=== PATIENT | female | born 1945 | race Caucasian/White ===

== ENCOUNTER 2017-09-22 19:53 | Emergency (ER) | payer BC, MEDICARE ==
[2017-09-22 20:09] VITALS: BP 126/74; PULSE 92; RESP 18; TEMP 98.2; O2SAT 96
[2017-09-22] MEDS ORDERED: ZOLO100T PO (20:26)
[2017-09-22] MEDS ORDERED: LIDOCAINE HCL 1% PF 30 ML VIAL INFIL ONE (20:45)
--- NOTE | 2017-09-22 21:18 | PD ---
HPI Chief Complaint: Fall Time Seen by Provider: 20:30 Travel History International Travel<30 days: No Contact w/Intl Traveler<30days: No Traveled to known affect area: No History of Present Illness HPI 72yo female that presents to the ED for a fall this evening. Pt states that she was helping her granddaughter move a bed when she tripped over the bed frame and hit her head on the floor. She was unable to get up on her own, and her granddaughter who is currently was not able to help her until EMS arrived. Pt reports that she has fallen several times in the past, all of which were due to a mechanical cause rather than a medical cause. Pt is not on any blood thinners. She denies any LOC, nausea, vomiting, blurred vision or focal neurologic deficits. Pain per patient is 4 out of 10. Denies any blood thinners. No other medical issues at this time. Pain is mostly to the head. PFSH Past Medical History Cancer: Yes (melenoma, lymp nodes removed ) Tetanus Vaccination: < 5 Years Social History Alcohol Use: No Tobacco Use: No Allergies-Medications (Allergen,Severity, Reaction): Coded Allergies: meperidine (Verified Allergy, Severe, 09/22/17) Reported Meds & Prescriptions Reported Meds & Active Scripts Active Diclofenac Sodium DR (Diclofenac Sodium) 75 Mg Tabdr 75 Mg PO BID PRN Reported Zoloft (Sertraline HCl) 100 Mg Tab 100 Mg PO DAILY Review of Systems Except as stated in HPI: all other systems reviewed are Neg Physical Exam Narrative GENERAL: well developed, well nourished pleasant female in no acute distress. Alert and oriented x3. SKIN: Warm and dry. 3cm oblique laceration noted above the L eyebrow. No involvement of the orbit or eyebrow. Several ecchymotic areas over the bilateral UE. Small, superficial abrasion over the L knee. EYES: Pupils equal and round. No scleral icterus. No injection or drainage. ENT: No nasal bleeding or discharge. Mucous membranes pink and moist. CARDIOVASCULAR: Regular rate and rhythm. No murmurs, rubs or gallops. RESPIRATORY: No accessory muscle use. Clear to auscultation. Breath sounds equal bilaterally. GASTROINTESTINAL: Abdomen soft, non-tender, nondistended. Hepatic and splenic margins not palpable. MUSCULOSKELETAL: Extremities without clubbing, cyanosis, or edema. No obvious deformities. Mild tenderness to the L lateral malleolus. Full range of motion of the upper and lower extremities bilaterally. The lumbar, thoracic, cervical spine tenderness to palpation. NEUROLOGICAL: Awake and alert. No obvious cranial nerve deficits. Motor grossly within normal limits. Five out of 5 muscle strength in the arms and legs. Normal speech. PSYCHIATRIC: Appropriate mood and affect; insight and judgment normal. Data Data Last Documented VS Vital Signs Date Time Temp Pulse Resp B/P (MAP) Pulse Ox O2 Delivery O2 Flow Rate FiO2 09/22/17 20:09 98.2 92 18 126/74 (91) [address] Brain W/O Iv Contrast(Rout) (09/22/17 20:37) Ct Cerv Spine W/O Contrast (09/22/17 20:37) Ice/Cold Pack (09/22/17 20:37) Lidocaine Pf 1% Inj (Xylocaine-Mpf 1% In (09/22/17 20:45) Ankle, Complete ([id number]) (09/22/17 ) Foot, Complete ([id number]) (09/22/17 ) Splint Or Brace Apply/Monitor (09/22/17 21:53) Acetaminophen (Tylenol) (09/22/17 22:00) Ed Discharge Order (09/22/17 22:03) MDM Medical Decision Making Medical Screen Exam Complete: Yes Emergency Medical Condition: Yes Medical Record Reviewed: Yes Interpretation(s) Last Impressions Head CT 09/22/172036 Signed Impressions: CONCLUSION: 1. No acute infarct, acute hemorrhage, midline shift or extra-axial fluid wilbur ections. 2. 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 Cervical Spine CT 09/22/172036 Signed Impressions: CONCLUSION: 1. No acute fracture or prevertebral soft tissue swelling. 2. Minimal bilateral foraminal narrowing at C5-6, C6-7, and C7-T1. 3. Cervical spondylosis at C4-5, C5-6 and C6-7. Ankle X-Ray 09/22/17 0000 Signed Impressions: CONCLUSION: 1. No acute fracture or dislocation. 2. Plantar and Achilles calcaneal spurs. X-ray of the left foot show no sign of bony injury. Differential Diagnosis Head injury versus fracture versus laceration versus head contusion versus concussion Narrative Course 72-year-old female that presents to the ED for evaluation of fall. Patient was properly examined was found to have signs and symptoms consistent with appears to be fall and head injury with possible bony injuries. Imaging was ordered. Imaging was unremarkable. After explained procedure to the patient and she agreed to it laceration was repaired by Medical student Brock Payton. Patient was told to get sutures removed in 7 days. Motrin or Tylenol for pain. Ice or warm compresses to areas of pain. Follow-up with PCP. See ED worsening symptoms. Procedures Procedure Narrative LACERATION LOCATION: left forehead LENGTH: 3 cm NUMBER OF STITCHES/HAMMAD: 5 sutures REPAIR: The area of the laceration was prepped with Betadine and sterilely draped. The laceration was infiltrated with 1% Xylocaine. The wound was copiously irrigated and explored without evidence of foreign body, tendon injury or neurovascular injury. The wound was closed using 4-0 Ethilone. This was a 1 layer repair. A sterile dressing was applied. The patient was advised to keep the dressing clean and dry. Patient tolerated the procedure well. Diagnosis Primary Impression: Head injury, acute Qualified Codes: S09.90XA - Unspecified injury of head, initial encounter Additional Impressions: Laceration Ankle sprain Qualified Codes: S93.402A - Sprain of unspecified ligament of left ankle, initial encounter Patient Instructions: General Instructions Departure Forms: Tests/Procedures, Work Release Enter return to work date: Sep 25, 2017 Additional Instructions: Motrin or tylenol for pain. F/u with PCP. See ED if worsening symptoms. Ice or heat as needed. Wound care daily with soap and water. You can apply bandaid if needed. Neosporyn or OTC antibiotic ointment to area as needed twice a day for at least 2 weeks to help with scarring and prevent infection. Meoderma OTC for scarring if needed. Avoid sun exposure for 2 months as the sun could make scar darker and more noticeable. Get sutures removed in 7 days. See ED if worst. Med/Other Pt SpecificInfo: Prescription(s) given Scripts Diclofenac Sodium DR (Diclofenac Sodium DR) 75 Mg Tabdr 75 MG PO BID Y for PAIN SCALE 1 TO 10, #20 TAB 0 Refills Prov: Graham Plascencia MD 09/22/17 Disposition: 01 DISCHARGE HOME Condition: Stable Frandy Wynne Sep 22, 2017 21:18
--- NOTE | 2017-09-22 21:20 | RADRPT ---
EXAM DATE: 09/22/2017 9:13 PM EDT AGE/SEX: 72 years / Female INDICATIONS: Trauma, patient tripped and fell hitting head. Laceration above left eye. CLINICAL DATA: This is the patient's initial encounter. Patient reports that signs and symptoms have been present for 1 day and indicates a pain score of 2/10. MEDICAL/SURGICAL HISTORY: . melanoma. None. RADIATION DOSE: 34.54 CTDI (mGy) COMPARISON: No prior [facility] exams available for comparison. TECHNIQUE: CT of the head without contrast. Using automated exposure control and adjustment of the mA and/or kV according to patient size, radiation dose was kept as low as reasonably achievable to ob tain optimal diagnostic quality images. FINDINGS: Cerebrum: The ventricles are normal for age. No evidence of midline shift, mass lesion, hemorrhage or acute infarction. No extraaxial fluid collections are seen. Tiny old lacunar infarcts are noted w ithin the bilateral basal ganglia. Posterior Fossa: The cerebellum and brainstem are intact. The 4th ventricle is midline. The cerebe llopontine angle is unremarkable. Extracranial: The visualized portion of the orbits is intact. Skull: The calvaria is intact. No evidence of skull fracture. CONCLUSION: 1. No acute infarct, acute hemorrhage, midline shift or extra-axial fluid collections. 2. 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 Electronically signed by: Wan Justice MD 09/22/2017 9:18 PM EDT
--- NOTE | 2017-09-22 21:24 | RADRPT ---
EXAM DATE: 09/22/2017 9:17 PM EDT AGE/SEX: 72 years / Female INDICATIONS: Trauma, patient tripped and fell, hitting head. CLINICAL DATA: This is the patient's initial encounter. Patient reports that signs and symptoms have been present for 1 day and indicates a pain score of 2/10. MEDICAL/SURGICAL HISTORY: . melanoma. None. RADIATION DOSE: 19.92 CTDI (mGy) COMPARISON: No prior [facility] exams available for comparison. TECHNIQUE: Contiguous axial images were obtained using helical multirow detector technique. The vol umetric data was post-processed with multiplanar reconstruction in oblique axial, sagittal, and coron al planes. Using automated exposure control and adjustment of the mA and/or kV according to patient s ize, radiation dose was kept as low as reasonably achievable to obtain optimal diagnostic quality geoff ges. FINDINGS: No acute fracture or prevertebral soft tissue swelling is noted. Cervical spondylosis is noted at C4- 5, C5-6, and C6-7. Minimal bilateral foraminal narrowing is noted at C5-6, C6-7 and C7-T1. C2-3: The bony spinal canal is normal in size. No evidence of disc bulge or herniation. The neural foramina are bilaterally patent. C3-4: The bony spinal canal is normal in size. No evidence of disc bulge or herniation. The neural foramina are bilaterally patent. C4-5: The bony spinal canal is normal in size. No evidence of disc bulge or herniation. The neural foramina are bilaterally patent. C5-6: The bony spinal canal is normal in size. No evidence of disc bulge or herniation. Minimal flory ateral foraminal narrowing is noted. C6-7: The bony spinal canal is normal in size. No evidence of disc bulge or herniation. Minimal flory ateral foraminal narrowing is noted. C7-T1: The bony spinal canal is normal in size. No evidence of disc bulge or herniation. Minimal bi lateral foraminal narrowing is noted. CONCLUSION: 1. No acute fracture or prevertebral soft tissue swelling. 2. Minimal bilateral foraminal narrowing at C5-6, C6-7, and C7-T1. 3. Cervical spondylosis at C4-5, C5-6 and C6-7. Electronically signed by: Wan Justice MD 09/22/2017 9:22 PM EDT
--- NOTE | 2017-09-22 21:45 | RADRPT ---
EXAM DATE: 09/22/2017 9:35 PM EDT AGE/SEX: 72 years / Female INDICATIONS: Pain on left ankle, lateral side post fall today. CLINICAL DATA: This is the patient's initial encounter. Patient reports that signs and symptoms have been present for 1 day and indicates a pain score of 8/10. MEDICAL/SURGICAL HISTORY: None. None. COMPARISON: No prior [facility] exams available for comparison. FINDINGS: Bony structures are intact and in normal alignment. Joints are intact without dislocation or signifi cant arthropathy. Osseous density is normal. Soft tissues are unremarkable. No radiopaque foreign bodies seen. Plantar and Achilles calcaneal spurs are noted. CONCLUSION: 1. No acute fracture or dislocation. 2. Plantar and Achilles calcaneal spurs. Electronically signed by: Wan Justice MD 09/22/2017 9:43 PM EDT
[2017-09-22] MEDS ORDERED: DICL75TA PO (21:53)
[2017-09-22] MEDS ORDERED: ACETAMINOPHEN 325 MG TAB PO ONE (22:00)
--- NOTE | 2017-09-22 22:00 | RADRPT ---
EXAM DATE: 09/22/2017 9:34 PM EDT AGE/SEX: 72 years / Female INDICATIONS: Pain in left foot on lateral side post fall today. CLINICAL DATA: This is the patient's initial encounter. Patient reports that signs and symptoms have been present for 1 day and indicates a pain score of 8/10. MEDICAL/SURGICAL HISTORY: None. None. COMPARISON: No prior [facility] exams available for comparison. FINDINGS: Plantar and Achilles calcaneal spurs are noted. Bunion deformity is noted. There is no acute fracture or dislocation of the left foot. Mild degenerative changes are noted involving the left first metata rsophalangeal joint. CONCLUSION: 1. No acute fracture or dislocation. 2. Bunion deformity. 3. Plantar and Achilles calcaneal spurs. 4. Mild degenerative changes involving the left first metatarsophalangeal joint. Electronically signed by: Wan Justice MD 09/22/2017 9:59 PM EDT
== END 2017-09-23 | disposition home or self-care (01) ==
LOC: NEPE 19:53
DX: S01.81XA Laceration without foreign body of other part of head, initial encounter (principal); S93.402A Sprain of unspecified ligament of left ankle, initial encounter; W01.0XXA Fall on same level from slipping, tripping and stumbling without subsequent striking against object, initial encounter; Y93.89 Activity, other specified
CPT/HCPCS: 12013; 70450; 72125; 73610; 73630